=== PATIENT | female | born 1970 ===

== ENCOUNTER 2022-03-20 10:30 | Outpatient (RCR) | payer OTHER, SELFPAY ==
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
--- NOTE | 2022-03-16 08:52 | PM.EVENT ---
Event Note Date of Service: 03/16/22 Event Note: Prescription for lamotrigine 50 mg daily times 14 days sent to pharmacy. Prescription for lamotrigine 100 mg daily, 30 day supply sent to pharmacy.
--- NOTE | 2022-03-16 13:28 | HO.PHPPROGNO ---
Subjective Subjective Date of Service: 03/16/22 Reason For Visit: anxiety,depression Guardianship: No Medical Problems Affecting Mental Status: No Interim History: Reports I'm doing better today . Continues with diffuse for act mood, reports that it appears to be lessening. No SI. Started the Lamictal. Reports she has 100 mg tabs at home, started taking the 100 mg tabs several days ago rather than the 25 mg. Denies any side effects. Medication Compliance: Intermittent (Started taking higher dose over weekend.) Side effects from medications: No Attending Groups: Yes Review of Systems Acute medical concerns: No Medical Review of Systems: unchanged Review of Systems Review of Systems Yes all other systems are reviewed and are negative Constitutional: Reports no additional constitutional complaints Mental Status Exam Mental Status Exam Narrative: In no apparent distress. Fully alert and cooperative during interview. Ambulation not observed. Patient Appearance: Well Grooomed and Appropriate Patient Orientation: Person, Place, Time and Situation Level of Consciousness: Awake, Appropriate and Alert Patient Behavior: Appropriate, Cooperative and Good Eye Contact Mood Description: Depressed and Anxious Affect Description: Depressed and Anxious Patient Cognition Impaired: No Ability to Follow Directions: Good Speech Pattern: Clear, Appropriate and Coherent Memory Description: Intact Hallucinations: None Delusions: Not Present Thought Process: Intact Thought Content: positive for Intact Depressive Symptoms: Increased Anxiety, Crying Spells, Loss of Int. in Activity, Unhappiness and Thoughts of /Suicide (fleeting passive at times over past year) Judgement: Fair Assessment & Plan Assessment & Plan (1) Major depressive disorder, recurrent, moderate: Status: Acute Code(s): F33.1 - Major depressive disorder, recurrent, moderate Assessment and Plan: Patient continues with dysphoric mood, although reports symptoms are beginning to lessen. She was prescribed Lamictal 25 mg x 14 days. She reports today that ?I have a compression to make ?. She then states that she had some 100 mg tablets from her last prescription, and that she was struggling over the weekend, so she began taking the 100 mg tabs rather than the 25 mg. We discussed side effects, adverse events. She reports that she has not experienced any side effects, especially from the higher dose. Scripts were sent in for 50 mg x 14 days, and then a 30 day script for 100 mg daily. She is very concerned at this time that although her symptoms of depression and anxiety are beginning to improve, that her history with Lamictal was such that it helped, but it did not fully alleviate symptoms of depression. She is asking for an antidepressant at this time. This was discussed in detail, including her history of feeling euphoric when prescribed Wellbutrin for several days in the past. She states that she has taking this into consideration, but that she would like to trial a low-dose antidepressant at this time. We discussed adding a low-dose sertraline 25 mg daily x5 days. She has been instructed to stop the medication immediately if she begins to feel any manic/hypomanic/euphoric symptoms. She was in agreement with this. Patient's last day is scheduled to be Wednesday, will follow up with her on that date to assess further. (2) Generalized anxiety disorder: Status: Acute Code(s): F41.1 - Generalized anxiety disorder Plan 1. Continue with current [facility] plan of care. 2. Prescription for Lamictal 50 mg x 14 days, then 100 mg daily Thera after, with 30 day supply, sent to pharmacy. 3. Low-dose sertraline 25 mg daily, 5 day supply prescription sent to pharmacy. 4. Follow-up as per protocol. Patient educated on: diagnosis, medication risk/benefits and therapeutic strategies Informed Consent: understands Reason for contiued partial hosp. stay Substantial Risk for: inability to function, rapid decompensation and med/psych decompensation Certification I certify that partial hospital treatment is medically necessary due to the symptoms and problems resulting from the patient's mental illness and the failure to treat the patient at the partial hospital level of care would likely result in the patient requiring inpatient psychiatric care which could not be prevented at a less intensive level of care. I spent minutes with the patient and/or on the patient floor today, greater than?50% of which was spent counseling/coordinating care. Discharge Plan Discharge Attending provider: Jesús Pascal Medications: New lamotrigine 25 mg tablet 25 mg PO DAILY 14 Days Qty: 14 0RF lamotrigine 25 mg tablet 50 mg PO DAILY 14 Days Qty: 28 0RF Rx Instructions: After completion of lamotrigine 25mg daily X 14 days, START lamotrigine 50mg (2 tabs) daily X 14 days. lamotrigine 100 mg tablet 100 mg PO DAILY 30 Days Qty: 30 0RF Rx Instructions: After completion of lamotrigine 50mg daily X 14 days, start lamotrigine 100mg daily. sertraline 25 mg tablet 25 mg PO DAILY 5 Days Qty: 5 0RF Stand Alone Forms: Patient Portal Discharge page Telehealth Telehealth Location of provider rendering services: practice address Location of patient: address on file Patient Identification confirmed using: Name, : Yes Telehealth method: video Patient verbally consented to treatment: Yes Patient verbally consented to billing insurance company: Yes Patient informed of any privacy concerns related to visit: Yes Minutes spent on Phone/Video with Pt.: 20
--- NOTE | 2022-03-17 15:29 | PC.NURSE ---
Pratibha emailed me as she was struggling with anxiety. I spoke to patient and she stated she is having much anxiety after the last group and does not know where it is coming from. Stated she does a lot of stress management techniques and does not know why they are not working. We talked about her lack of support system and we processed ways to improve her support system. Patient also encouraged to talk about her struggles in reaching out to others as she has a fear of rejection as she is feeling vulnerable. Patient stated she felt much better after our conversation and is planning on taking her dog for a walk. Patient also asked for a note to give to work that stated she was in treatment at [facility].
--- NOTE | 2022-03-19 16:13 | HO.PHPPROGNO ---
Subjective Subjective Date of Service: 03/19/22 Reason For Visit: anxiety,depression Guardianship: No Medical Problems Affecting Mental Status: No Interim History: Describes mood as ?I feel good ?. Reports feels more stable, improved sleep. Would like to continue with current medications going forward. Feels stable for discharge tomorrow. Medication Compliance: Yes Side effects from medications: No Attending Groups: Yes Review of Systems Acute medical concerns: No Medical Review of Systems: unchanged Review of Systems Review of Systems Yes all other systems are reviewed and are negative Constitutional: Reports no additional constitutional complaints Mental Status Exam Mental Status Exam Narrative: NAD. Ambulation not observed. Patient Appearance: Well Grooomed and Appropriate Patient Orientation: Person, Place, Time and Situation Level of Consciousness: Awake, Appropriate and Alert Patient Behavior: Appropriate, Cooperative and Good Eye Contact Mood Description: Calm, Happy and Relaxed Affect Description: Appropriate Patient Cognition Impaired: No Ability to Follow Directions: Excellent Speech Pattern: Clear, Appropriate and Coherent Memory Description: Intact Hallucinations: None Delusions: Not Present Thought Process: Intact Thought Content: positive for Intact Judgement: Good Assessment & Plan Assessment & Plan (1) Major depressive disorder, recurrent, moderate: Status: Acute Code(s): F33.1 - Major depressive disorder, recurrent, moderate Assessment and Plan: Patient reports overall feeling much improved since starting partial. States that the Lamictal as well as a sertraline appear to be helping improve both depression and anxiety. States that she feels calm, relaxed, stable. Denies any feelings of being activated, any symptoms of hypomania/hilda. Denies any thoughts of harm to self or others, no SI, no safety concern. She reports that she feels she is ready to be discharged from [facility] tomorrow, and plans to return to work next week. She would like to continue with current medications Zoloft 25 mg as well as Lamictal 100 mg daily. (2) Generalized anxiety disorder: Status: Acute Code(s): F41.1 - Generalized anxiety disorder Plan 1. Patient appears stable for discharge from [facility] tomorrow. 2. Continue with current [facility] plan of care. 3. Continue with current medication regimen as prescribed. Refill sent for sertraline, 30-day supply. Patient educated on: diagnosis, medication risk/benefits and therapeutic strategies Informed Consent: understands Reason for contiued partial hosp. stay Substantial Risk for: stable for discharge Certification I certify that partial hospital treatment is medically necessary due to the symptoms and problems resulting from the patient's mental illness and the failure to treat the patient at the partial hospital level of care would likely result in the patient requiring inpatient psychiatric care which could not be prevented at a less intensive level of care. I spent minutes with the patient and/or on the patient floor today, greater than?50% of which was spent counseling/coordinating care. Discharge Plan Discharge Attending provider: Jesús Pascal Additional Instructions: Intake for prosper 03/26/22 @[facility] , Appt with Dr Christy 04/16/22 @ [facility] Medications: New lamotrigine 25 mg tablet 25 mg PO DAILY 14 Days Qty: 14 0RF lamotrigine 25 mg tablet 50 mg PO DAILY 14 Days Qty: 28 0RF Rx Instructions: After completion of lamotrigine 25mg daily X 14 days, START lamotrigine 50mg (2 tabs) daily X 14 days. lamotrigine 100 mg tablet 100 mg PO DAILY 30 Days Qty: 30 0RF Rx Instructions: After completion of lamotrigine 50mg daily X 14 days, start lamotrigine 100mg daily. sertraline 25 mg tablet 25 mg PO DAILY Qty: 30 0RF Stand Alone Forms: Patient Portal Discharge page Telehealth Telehealth Location of provider rendering services: practice address Location of patient: address on file Patient Identification confirmed using: Name, : Yes Telehealth method: video Patient verbally consented to treatment: Yes Patient verbally consented to billing insurance company: Yes Patient informed of any privacy concerns related to visit: Yes Minutes spent on Phone/Video with Pt.: 15
--- NOTE | 2022-03-20 11:50 | PC.NURSE ---
Patient discharging from [facility] today. Denied any safety issues, no SI. Stated she needs to go back to work on Wednesday. Yamilet prescriber received patients [place] paperwork. 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 She stated her supervisor filling and packing agreed. Shani reports she is anxious regarding going back to work. Reviewed medications with patient. Patient reports she is currently on Lamictal 100 mg daily. [facility] prescriber Yamilet Mercado NP is aware.
--- NOTE | 2022-03-20 15:14 | PM.EVENT ---
Event Note Date of Service: 03/20/22 Event Note: FMLA/Disability paperwork completed for RTW.
== END 2022-03-22 23:59 | disposition home or self-care (01) ==
LOC: HO.PHPA 10:30
PROVIDERS: Visit Provider Psychiatry & Neurology Psychiatry
DX: F33.1 Major depressive disorder, recurrent, moderate (principal); F41.1 Generalized anxiety disorder; Z79.899 Other long term (current) drug therapy
CPT/HCPCS: 90791; 90853